=== PATIENT | male | born 1935 | race Caucasian/White ===

== ENCOUNTER 2022-03-31 11:00 | Day surgery (SDC) | payer OTHER ==
[2022-03-30 10:09] LABS: Absolute Lymphocytes (CBC) 1.2 K/uL (0.7-4.9); Hematocrit 49.5 % (39.6-49.0); Lymphocytes % 14.1 % (15.3-44.8); MCV 91.2 fL (80-100); MPV 7.4 fL (7.6-11.3); RBC Red Blood Cell Count 5.43 M/uL (4.33-5.43)
--- NOTE | 2022-03-30 10:12 | RAD REPORT ---
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 COMPARISON: CHEST PA AND LAT 2 VIEW dated 06/04/2008; CHEST PA AND LAT 2 VIEW dated 07/21/2006 FINDINGS: Mild pulmonary edema is seen. Small left pleural effusion. The heart is mildly prominent. No displaced fractures. Cervical spine hardware plate. IMPRESSION: Mild CHF.
[2022-03-30 10:15] LABS: Protime INR 0.93
[2022-03-30 10:21] LABS: SARS-CoV-2 Antigen Rapid Res Negative (Negative)
[2022-03-30 10:33] LABS: Potassium 3.5 mmol/L (3.5-5.1)
--- NOTE | 2022-03-30 18:28 | EKG ---
Test Date: 2022-03-30 Test Time: 09:52:02 Voice Studies Director: KEITH MEASUREMENT RESULTS: Intervals: Rate: 72 OH: 218 QRSD: 94 QT: 404 QTc: 442 [place]: P: [place]: 218 QRS: 171 T: 186 INTERPRETIVE STATEMENTS: Sinus rhythm with 1st degree AV block Left posterior fascicular block Inferior infarct, age undetermined Abnormal ECG Compared to ECG 09/16/2020 18:10:58 First degree AV block now present Left posterior fascicular block now present Myocardial infarct finding now present ST (T wave) deviation no longer present Possible ischemia no longer present Prolonged QT interval no longer present Electronically Signed On 03-30-22 18:27:56 CDT by Roderick Jarquin
[~2022-03-31 11:00] MED LIST: ATROPINE SULF 1 MG/10 ML SYR IV ONE; FENTANYL CITR 100 MCG/2 ML ONE; HEPA 1000U/500MLS 1,000 UNIT/500 ML BAG IV ONE; LIDOCAINE 1% MPF 30 ML VIAL ONE; MIDAZOLAM HCL 2 MG/2 ML INJ ONE
[2022-03-31] MEDS ORDERED: NA CHLORIDE 0.9% 500 ML ONE (11:18)
[2022-03-31] MEDS ORDERED: MIDAZOLAM HCL 2 MG/2 ML INJ ONE (12:55)
[2022-03-31 14:26] VITALS: O2SAT 92
[2022-03-31 15:01] VITALS: BP 147/67
--- NOTE | 2022-03-31 19:20 | OP ---
Date of Procedure: 03/31/2022 Surgeon: CATALINO CEDENO Procedures Performed: 1.Bilateral selective carotid angiogram. 2.Peripheral angiogram access of right femoral artery 6-Beninese closed with 6-Beninese Angio-Seal. Complications: None. Bleeding: Less than 50 mL. Indication: 1.Significant carotid stenosis by Doppler. 2.Significant peripheral vascular disease by Doppler with claudication. Anesthesia: Total sedation time was 45 minutes. Description Of Procedure: After risks, benefits, and alternatives were explained, patient agreed to the procedure and signed informed consent was obtained. Patient was brought into the cardiac cathete rization laboratory, prepped and draped in usual sterile fashion. Then, we accessed the right femora l artery using micropuncture kit, fluoroscopy, and ultrasound guidance, placed 6-Beninese [place] ruiz th and took 6-Beninese JR4 catheter into the aortic root, engaged the right and then the left common ca rotids and took standard views and then exchanged for a straight pigtail, did the distal aortogram wi th runoff and peripheral angiogram and then removed the catheter and the sheath and 6-Beninese Angio-Se al was used for closure with good hemostasis. Findings: 1.The carotid angiogram. a.The right common carotid artery has about 50% to 60% stenosis before the bifurcation. The right i nternal and external carotid artery appears normal. b.The left common carotid artery has midshaft 40% stenosis and then the left internal and external c arotid arteries appear normal. 2.Peripheral angiogram. a.Distal aorta is patent. b.Bilateral iliac arteries are with diffuse 40% to 50% stenosis and tandem lesions in multiple locat ions. c.Bilateral common femoral arteries are patent with luminal irregularities and bilateral profunda ar e patent. d.Bilateral SFA are patent with multiple tandem lesions of foot ranging between 40% to 50%. e.Below the knee, there is a 3-vessel runoff and they are all patent all the way to the toes with mi ld diffuse disease ranging anywhere between 10% to 30%, multiple locations, but brisk blood flow. Conclusion: 1.Moderate carotid artery stenosis bilaterally. 2.Moderate peripheral vascular disease bilaterally. Plan: Aggressive risk factor modification, medical management. SR/MODL Voice ID: [id number] Report ID: [id number]
== END 2022-03-31 15:10 | disposition home or self-care (01) ==
LOC: CCL 11:00
PROVIDERS: ATTEND Internal Medicine
DX: I65.23 Occlusion and stenosis of bilateral carotid arteries (principal); I70.213 Atherosclerosis of native arteries of extremities with intermittent claudication, bilateral legs; I10 Essential (primary) hypertension; E78.5 Hyperlipidemia, unspecified; Z87.891 Personal history of nicotine dependence; Z79.899 Other long term (current) drug therapy; Z88.0 Allergy status to penicillin; Z88.2 Allergy status to sulfonamides; Z20.822 Contact with and (suspected) exposure to COVID-19
CPT/HCPCS: 36222; 36415; 71046; 75630; 76937; 80048; 85025; 85610; 85730; 87811; 93005; C1760; C1893; G0269; J1644; J2250; J3010; J7040

== ENCOUNTER 2023-08-29 09:58 | Inpatient (IN) | payer OTHER ==
[2023-08-29 10:45] LABS: Absolute Lymphocytes (CBC) 0.9 K/uL (0.7-4.9); Hematocrit 40.7 % (39.6-49.0); Lymphocytes % 6.4 % (15.3-44.8); MCV 90.1 fL (80-100); MPV 8.5 fL (7.6-11.3); Platelets 235 thou/uL (152-406); RBC Red Blood Cell Count 4.51 M/uL (4.33-5.43)
[2023-08-29 10:49] LABS: Protime INR 1.08
--- NOTE | 2023-08-29 10:58 | RAD REPORT ---
[facility] am CLINICAL HISTORY: hypotension COMPARISON: Chest Single View dated 08/17/2023; Chest Pa And Lat (2 Views) dated 03/30/2022; CHEST PA AND LAT 2 VIEW dated 06/04/2008; CHEST PA AND LAT 2 VIEW dated 07/21/2006; Chest Abd Pelvis Wo Con howard ed 08/17/2023 TECHNIQUE: Portable AP view of the chest. FINDINGS: The lungs show bibasilar streaky opacities, may reflect atelectasis or improving airspace disease, particularly on the left. Improvement of aeration along the left costophrenic angle since th e prior exam. No pneumothorax or effusion. The cardiomediastinal contours are unremarkable. IMPRESSION: Improving bibasilar opacities as above. No other Acute cardiopulmonary process.
[2023-08-29 11:01] LABS: Albumin 2.6 g/dL (3.4-5.0); Bilirubin Total 0.7 mg/dL (0.2-1.0); Potassium 4.2 mEq/L (3.5-5.1); Protein, Total 6.7 g/dL (6.4-8.2); Troponin High Sensitivity 24.3 pg/mL (<58.9)
[2023-08-29 11:50] LABS: Urine Bacteria None Seen /HPF (<20); Urine Bilirubin NEGATIVE (Negative); Urine Clarity Turbid (Clear); Urine Color Light-Yellow (Yellow); Urine Glucose NEGATIVE (Negative); Urine Mucus Slight /HPF (None Seen); Urine Urobilinogen Normal (Normal)
[2023-08-29] MEDS ORDERED: CEFEPIME 2 GM VIAL ONE (12:19)
[2023-08-29] MEDS ORDERED: NA CHLORIDE 0.9% 100 ML ONE (12:20)
[2023-08-29] MEDS ORDERED: NA CHLORIDE 0.9% 1,000 ML ONE (12:20)
[2023-08-29] MEDS ORDERED: NA CHLORIDE 0.9% 500 ML ONE (12:20)
--- NOTE | 2023-08-29 13:04 | RAD REPORT ---
EXAM DESCRIPTION: CT - Abdomen Pelvis Wo Contrast - 08/29/2023 12:51 pm CLINICAL HISTORY: Abdominal pain. nephrostomy eval COMPARISON: No comparisons TECHNIQUE: CT imaging of the abdomen and pelvis was performed without contrast. Solid organ, bowel a nd vascular assessment is limited due to lack of IV and oral contrast. All CT scans are performed using dose optimization technique as appropriate and may include automated exposure control or mA/KV adjustment according to patient size. 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 The liver, spleen, pancreas, adrenal glands are within normal limits for a limited non-contrast exami nation.Punctate bilateral nephrolithiasis is left-sided PCN is in place. The pigtail is in the left r enal pelvis. No hydronephrosis. There is 8 mm stone noted proximal left ureter distal to the pigtail position. No bowel obstruction, free air, free fluid or abscess. Heavy aortoiliac atherosclerosis. Advanced sig moid diverticulosis without diverticulitis. The appendix is normal. Moderate stool retained throughou t the colon. Lumbosacral degenerative changes. IMPRESSION: Left-sided percutaneous nephrostomy tube is in expected location. There is no maternal h ydronephrosis. There is 8 mm stone in the proximal left ureter distal to the pigtail. Punctate bilate ral nephrolithiasis present as well. Multi stone cholelithiasis. A limited non-contrast examination was performed as detailed.
--- NOTE | 2023-08-29 13:19 | ER ---
Nurse's Notes [facility] Name: Víctor Javier Age: 88 yrs Sex: Male : 1935 Arrival Date: 08/29/2023 Time: 09:58 Bed 14 Private MD: Diagnosis: Hypotension;Acute kidney injury Presentation: 08/29 10:05 Chief complaint: EMS states: pt was at the [facility] for a routine check up when they were kc6 getting sbp's in the 70's. BGL en route 83. per Dr. Moise admin the rest of the 1L fluid bolus from EMS. Coronavirus screen: At this time, the client does not indicate any symptoms associated with coronavirus-19. Ebola Screen: No symptoms or risks identified at this time. Initial Sepsis Screen: Does the patient meet any 2 criteria? Systolic BP < 90 mmHg. Mean Arterial Pressure (MAP) < 65. Does the patient have a suspected source of infection? No. Patient's initial sepsis screen is negative. Risk Assessment: Do you want to hurt yourself or someone else? Patient reports no desire to harm self or others. Onset of symptoms was August 29, 2023. 10:05 Method Of Arrival: EMS: [facility] kc6 10:05 Acuity: ELTON 2 kc6 Triage Assessment: 10:07 General: Appears in no apparent distress. comfortable, well groomed, well developed, kc6 Behavior is calm, cooperative, appropriate for age. Pain: Denies pain. EENT: No signs and/or symptoms were reported regarding the EENT system. Neuro: Level of Consciousness is awake, alert, obeys commands, Oriented to person, place, time, situation, Appropriate for age Reports dizziness. Cardiovascular: Denies chest pain, Heart tones S1 S2 present Capillary refill < 3 seconds Rhythm is sinus rhythm. Respiratory: Reports shortness of breath on exertion Airway is patent Trachea midline Respiratory effort is even, unlabored, Respiratory pattern is regular, symmetrical. GI: No signs and/or symptoms were reported involving the gastrointestinal system. : left nephrostomy tube. Derm: No signs and/or symptoms reported regarding the dermatologic system. Skin is intact, is healthy with good turgor, Skin is pink, warm \T\ dry. Musculoskeletal: No signs and/or symptoms reported regarding the musculoskeletal system. Circulation, motion, and sensation intact. Capillary refill < 3 seconds, Range of motion: intact in all extremities. Historical: - Allergies: 10:07 PENICILLINS; kc6 10:07 Sulfa (Sulfonamide Antibiotics); kc6 - PMHx: 10:07 Chronic obstructive lung disease; Hypertensive disorder; Diabetes mellitus; Kidney kc6 stone; - PSHx: 10:07 left nephrostomy tube; kc6 - Immunization history:: Adult Immunizations up to date. - Social history:: Smoking status: Patient/guardian denies using tobacco. Screenin:09 [facility] ED Fall Risk Assessment (Adult) History of falling in the last 3 months, kc6 including since admission No falls in past 3 months (0 pts) Confusion or Disorientation No (0 pts) Intoxicated or Sedated No (0 pts) Impaired Gait No (0 pts) Mobility Assist Device Used No (0 pt) Altered Elimination Yes (1 pt) Score/Fall Risk Level 0 - 2 = Low Risk. Abuse screen: Denies threats or abuse. Denies injuries from another. Nutritional screening: No deficits noted. Tuberculosis screening: No symptoms or risk factors identified. Assessment: 10:09 Reassessment: please see triage assessment. kc6 10:54 Reassessment: Patient appears in no apparent distress at this time. No changes from kc6 previously documented assessment. Patient and/or family updated on plan of care and expected duration. Pain level reassessed. Patient is alert, oriented x 3, equal unlabored respirations, skin warm/dry/pink. 11:56 Reassessment: Patient appears in no apparent distress at this time. No changes from kc6 previously documented assessment. Patient and/or family updated on plan of care and expected duration. Pain level reassessed. Patient is alert, oriented x 3, equal unlabored respirations, skin warm/dry/pink. 12:46 Reassessment: Patient appears in no apparent distress at this time. No changes from kc6 previously documented assessment. Patient and/or family updated on plan of care and expected duration. Pain level reassessed. Patient is alert, oriented x 3, equal unlabored respirations, skin warm/dry/pink. 14:20 Reassessment: Patient appears in no apparent distress at this time. No changes from kc6 previously documented assessment. Patient and/or family updated on plan of care and expected duration. Pain level reassessed. Patient is alert, oriented x 3, equal unlabored respirations, skin warm/dry/pink. Vital Signs: 10:05 BP 64 / 43; Pulse 85; Resp 17 S; Pulse Ox 98% on 3 lpm NC; Weight 79.38 kg (R); Height kc6 5 ft. 9 in. (R); 10:12 BP 113 / 47; kc6 10:54 BP 101 / 65; Pulse 81; Resp 19 S; Pulse Ox 94% on 3 lpm NC; kc6 11:56 BP 96 / 48; Pulse 88; Resp 19 S; Pulse Ox 95% on 3 lpm NC; kc6 12:47 BP 100 / 60; Pulse 85; Resp 16 S; Pulse Ox 95% on 3 lpm NC; kc6 14:21 BP 100 / 48; Pulse 92; Resp 17 S; Pulse Ox 93% on 3 lpm NC; kc6 10:05 Body Mass Index 25.84 (79.38 kg, 175.26 cm) kc6 ED Course: 10:03 Patient arrived in ED. kb3 10:05 Mary Escamilla RN is Primary Nurse. kc6 10:07 Triage completed. kc6 10:07 Arm band placed on. kc6 10:08 Ben Moise MD is Attending Physician. rt 10:09 Patient has correct armband on for positive identification. Placed in gown. Bed in low kc6 position. Call light in reach. Side rails up X2. Client placed on continuous cardiac and pulse oximetry monitoring. NIBP monitoring applied. raw scales operator on. 10:09 Maintain EMS IV. Dressing intact. Good blood return noted. Site clean \T\ dry. Gauge \T\ jessa 6 site: 20G LAC. Oxygen administration via nasal cannula \T\ 3L/min. 10:13 Missed attempt(s): 18 gauge in right wrist. Bleeding controlled, band aid applied, em1 catheter tip intact. 10:32 Inserted saline lock: 20 gauge in right antecubital area, using aseptic technique. kc6 Blood collected. 10:54 Chest Single View XRAY In Process Unspecified. EDMS 11:04 UAM: from nephrostomy Sent. kc6 11:04 Straight cath inserted, using sterile technique, 16 Fr. Specimen obtained. Returned kc6 clear yellow urine. Patient tolerated well. 12:53 CT Abd/Pelvis - Without Contrast In Process Unspecified. EDMS 13:17 Renaldo Bower MD is Hospitalizing Provider. rt 14:29 No provider procedures requiring assistance completed. Patient admitted, IV remains in kc6 place. Administered Medications: 12:29 Drug: NS 0.9% IV 1400 ml IV at 1 bolus Per protocol; 1000 mL bolus Route: IV; Rate: 1 kc6 bolus; Site: left antecubital; 14:21 Follow up: Response: No adverse reaction; IV Status: Completed infusion; IV Intake: kc6 1400ml 12:29 Drug: Cefepime IVPB 2 grams IVPB at 200 ml/hr once over 30 mins; (mix in NS 100 mL) kc6 Route: IVPB; Rate: 200 ml/hr; Infused Over: 30 mins; Site: right antecubital; Medication: 14:30 VIS not applicable for this client. kc6 Intake: 14:21 IV: 1400ml; Total: 1400ml. kc6 Outcome: 13:18 Decision to Hospitalize by Provider. rt 14:30 Admitted to ER Hold. Please see [facility] for further documentation. kc6 14:30 Condition: stable 14:30 Instructed on the need for admit, 16:25 Patient left the ED. kc6 Signatures: Dispatcher [employer] EDMS Timoteo Garcia em1 Mary Escamilla RN RN kc6 Denice Guerrero, KHADAR RN kb3 Ben Moise MD MD rt Corrections: (The following items were deleted from the chart) 11:12 11:04 Urinalysis+U.LAB.BRZ drawn and sent. kc6 EDMS 15:12 10:05 Chief complaint: EMS states: [facility] when they kc6 were getting sbp's in the 70's. BGL en route 83 kc6
--- NOTE | 2023-08-29 13:19 | EDPHYS ---
Physician Documentation [facility] Name: Víctor Javier Age: 88 yrs Sex: Male : 1935 Arrival Date: 08/29/2023 Time: 09:58 Bed 14 Private MD: ED Physician Ben Moise HPI: 08/29 10:51 This 88 yrs old Male presents to ER via EMS with complaints of Blood Pressure Problem. rt 10:51 Patient presents to the ED with hypotension from the [facility]. The patient reports rt feeling weak, dizzy, short of breath but he states this is typical for him and unchanged. His blood pressure was reportedly in the 60s systolic at the [facility]. Denies any other complaints at this time, symptoms are moderate in severity, no other aggravating or elevating factors.. Historical: - Allergies: 10:07 PENICILLINS; kc6 10:07 Sulfa (Sulfonamide Antibiotics); kc6 - PMHx: 10:07 Chronic obstructive lung disease; Hypertensive disorder; Diabetes mellitus; Kidney kc6 stone; - PSHx: 10:07 left nephrostomy tube; kc6 - Immunization history:: Adult Immunizations up to date. - Social history:: Smoking status: Patient/guardian denies using tobacco. ROS: 10:51 Constitutional: Negative for fever, chills, and weight loss, Cardiovascular: Negative rt for chest pain, palpitations, and edema, Abdomen/GI: Negative for abdominal pain, nausea, vomiting, diarrhea, and constipation, MS/Extremity: Negative for injury and deformity, Skin: Negative for injury, rash, and discoloration, Psych: Negative for depression, anxiety, suicide ideation, homicidal ideation, and hallucinations, 10:51 Respiratory: Positive for cough, Negative for cough, 10:51 Neuro: Positive for dizziness, weakness, Exam: 10:51 Constitutional: This is a well developed, well nourished patient who is awake, alert, rt and in no acute distress. Head/Face: Normocephalic, atraumatic. Neck: Trachea midline, no thyromegaly or masses palpated, and no cervical lymphadenopathy. Supple, full range of motion without nuchal rigidity, or vertebral point tenderness. No Meningismus. Chest/axilla: Normal chest wall appearance and motion. Nontender with no deformity. No lesions are appreciated. Cardiovascular: Regular rate and rhythm with a normal S1 and S2. No gallops, murmurs, or rubs. Normal PMI, no JVD. No pulse deficits. Respiratory: Lungs have equal breath sounds bilaterally, clear to auscultation and percussion. No rales, rhonchi or wheezes noted. No increased work of breathing, no retractions or nasal flaring. Abdomen/GI: Soft, non-tender, with normal bowel sounds. No distension or tympany. No guarding or rebound. No evidence of tenderness throughout. Skin: Warm, dry with normal turgor. Normal color with no rashes, no lesions, and no evidence of cellulitis. MS/ Extremity: Pulses equal, no cyanosis. Neurovascular intact. Full, normal range of motion. Neuro: Awake and alert, GCS 15, oriented to person, place, time, and situation. Cranial nerves II-XII grossly intact. Motor strength 5/5 in all extremities. Sensory grossly intact. Cerebellar exam normal. Normal gait. Psych: Awake, alert, with orientation to person, place and time. Behavior, mood, and affect are within normal limits. 10:51 ECG was reviewed by the Attending Physician. 10:51 Back: Left-sided nephrostomy tube in place, draining, no erythema surrounding it., Vital Signs: 10:05 BP 64 / 43; Pulse 85; Resp 17 S; Pulse Ox 98% on 3 lpm NC; Weight 79.38 kg (R); Height kc6 5 ft. 9 in. (R); 10:12 BP 113 / 47; kc6 10:54 BP 101 / 65; Pulse 81; Resp 19 S; Pulse Ox 94% on 3 lpm NC; kc6 11:56 BP 96 / 48; Pulse 88; Resp 19 S; Pulse Ox 95% on 3 lpm NC; kc6 12:47 BP 100 / 60; Pulse 85; Resp 16 S; Pulse Ox 95% on 3 lpm NC; kc6 14:21 BP 100 / 48; Pulse 92; Resp 17 S; Pulse Ox 93% on 3 lpm NC; kc6 10:05 Body Mass Index 25.84 (79.38 kg, 175.26 cm) kc6 MDM: 10:08 Patient medically screened. rt 16:32 Differential Diagnosis Hypertension, intravascular bomb depletion, anemia. Data rt reviewed: vital signs, nurses notes, lab test result(s), EKG, radiologic studies. Consideration of Admission/Observation Patient was admitted/placed on observation. Management of patient was discussed with the following: Hospitalist: Agrees to admit. I considered the following discharge prescriptions or medication management in the emergency department Medications were administered in the Emergency Department. See MAR Patient without clear source of infection, empiric antibiotics were given. Care significantly affected by the following chronic conditions: Chronic Obstructive Pulmonary Disease. Counseling: I had a detailed discussion with the patient and/or guardian regarding the historical points, exam findings, and any diagnostic results supporting the discharge/admit diagnosis, lab results, radiology results, the need for further work-up and treatment in the hospital. 08/29 10:19 Order name: Blood Culture Adult (2) rt 08/29 10:19 Order name: CBC with Diff; Complete Time: 11:05 rt 08/29 10:19 Order name: CMP; Complete Time: 11: rt 08/29 10:19 Order name: Lactate w/ 2H reflex if indic.; Complete Time: 11: rt 08/29 10:19 Order name: Protime (+inr); Complete Time: 11:05 rt 08/29 10:19 Order name: Ptt, Activated; Complete Time: 11:05 rt 08/29 10:19 Order name: UAM: from nephrostomy; Complete Time: 14:20 rt 08/29 10:19 Order name: Troponin High Sensitivity; Complete Time: 11:05 rt 08/29 13:09 Order name: UAM: Obtain urine from urethra/bladder; Complete Time: 14:20 la1 08/29 10:19 Order name: Chest Single View XRAY; Complete Time: 11:05 rt 08/29 12:25 Order name: CT Abd/Pelvis - Without Contrast; Complete Time: 13:09 rt 08/29 10:19 Order name: EKG; Complete Time: 10:19 rt 08/29 13:30 Order name: CONS Physician Consult EDMS 08/29 10:19 Order name: Accucheck; Complete Time: 10:32 rt 08/29 10:19 Order name: Cardiac monitoring; Complete Time: 10:32 rt 08/29 10:19 Order name: EKG - Nurse/Tech; Complete Time: 10:32 rt 08/29 10:19 Order name: IV Saline Lock - Large Bore; Complete Time: 10:32 rt 08/29 10:19 Order name: Labs collected and sent; Complete Time: rt 08/29 10:19 Order name: O2 Per Protocol; Complete Time: rt 08/29 10:19 Order name: O2 Sat Monitoring; Complete Time: rt 08/29 10:19 Order name: Vital Signs; Complete Time: 10:32 rt EC:51 Rate is 76 beats/min. Rhythm is regular, Normal Sinus Rhythm with No ectopy. QRS Sutton rt is Normal. NE interval is normal. QRS interval is normal. QT interval is normal. No Q waves. T waves are Normal. No ST changes noted. Administered Medications: 12:29 Drug: NS 0.9% IV 1400 ml IV at 1 bolus Per protocol; 1000 mL bolus Route: IV; Rate: 1 kc6 bolus; Site: left antecubital; 14:21 Follow up: Response: No adverse reaction; IV Status: Completed infusion; IV Intake: kc6 1400ml 12:29 Drug: Cefepime IVPB 2 grams IVPB at 200 ml/hr once over 30 mins; (mix in NS 100 mL) kc6 Route: IVPB; Rate: 200 ml/hr; Infused Over: 30 mins; Site: right antecubital; Disposition Summary: 08/29/23 13:18 Hospitalization Ordered Notes: Hospitalization Status: Inpatient Admission rt Provider: Renaldo Bower [facility] rt Condition: Fair rt Problem: new rt Symptoms: have improved rt Bed/Room Type: Standard rt Room Assignment: 219(08/29/23 15:25) bd Diagnosis - Hypotension rt - Acute kidney injury rt Forms: - Medication Reconciliation Form rt - SBAR form rt - Leadership Thank You Letter rt Critical care time excluding procedures: 16:32 Critical care time: Bedside Care: 30 minutes, Consultation: 10 minutes. Total time: 40 rt minutes Signatures: Dispatcher [employer] Mckenzie Demarco Kaitlyn, RN RN kc6 Ben Moise MD MD rt Corrections: (The following items were deleted from the chart) 11:12 10:19 Urinalysis+U.LAB.BRZ ordered. ZAK CRESPO 15:25 13:18 rt bd
[2023-08-29 14:03] LABS: Specific Gravity 1.017 (1.005-1.030); Urine Bacteria None Seen /HPF (<20); Urine Bilirubin NEGATIVE (Negative); Urine Blood Negative (Negative); Urine Clarity Turbid (Clear); Urine Color Light-Yellow (Yellow); Urine Glucose NEGATIVE (Negative); Urine Mucus Slight /HPF (None Seen); Urine Protein TRACE (Negative); Urine RBC <5 /HPF (None Seen); Urine Urobilinogen Normal (Normal)
[2023-08-29 14:07] LABS: Specific Gravity 1.016 (1.005-1.030); Urine Blood 3+ (Negative)
[2023-08-29 14:08] LABS: Urine Protein 2+ (Negative); Urine pH 5.5 (5.0-7.0)
[2023-08-29 14:09] LABS: Urine RBC >50 /HPF (None Seen)
[2023-08-29] MEDS: NA CHLORIDE 0.9% 1,000 ML IV SCH (14:25)
--- NOTE | 2023-08-29 15:17 | P.HP ---
Certification for Inpatient Patient admitted to: Inpatient With expected LOS: >2 Midnights Patient will require the following post-hospital care: None Practitioner: I am a practitioner with admitting privileges, knowledge of patient current condition, hospital course, and medical plan of care. Services: Services provided to patient in accordance with Admission requirements found in Title 42 Section 412.3 of the Code of Federal Regulations Patient History Date of Service: 08/29/23 Reason for admission: VINICIUS, hypotension History of Present Illness: 88-year-old male with hypertension, hypothyroidism, hyperlipidemia, gout presents to the emergency department chief complaint of low blood pressure. He was recently admitted to our hospital for acute hypoxic respiratory failure 2/2 COVID pneumonia/copd , acute kidney injury and found to have obstructive uropathy. He was transferred to [facility] for further evaluation/percutaneous nephrostomy tube placement given his marked hydronephrosis. He was discharged from [facility] on 08/23/2023 with a creatinine around 1.5. He was discharged to rehab facility for approximately 3 days and subsequently went home 3 days prior to presentation to the emergency department. He was evaluated here in the emergency department and his labs were significant for a white blood cell count of 14.1 creatinine 5.03 BUN 155 GFR 10 bicarb 20 sodium 132 lactic acid 1.4 UA was obtained from nephrostomy tube which was concerning for presence of UTI Additional urine was obtained with straight cath from urethra which did not seem to demonstrate infection Upon presentation to the emergency department patient was hypotensive with a blood pressure of 64/43, he was given IV fluids in the emergency department and his blood pressure has improved, he was also given empiric antibioticscefepime. There is also likely component of dehydration/poor oral intake contributing to his hypovolemia, hypotension. Patient be admitted to hospital for further evaluation Allergies Penicillins Allergy (Verified 03/30/22 09:20) Hives/Rash Sulfa (Sulfonamide Antibiotics) Allergy (Verified 03/30/22 09:20) swelling Home Medications: Amlodipine Besylate [Norvasc] 10 mg PO DAILY WITH BREAKFAST 08/19/16 Levothyroxine Sodium 100 mcg PO DAILY 08/19/16 allopurinoL [Zyloprim*] 300 mg PO DAILY 08/19/16 lisinopriL [Prinivil*] 40 mg PO DAILY WITH BREAKFAST 08/19/16 Atorvastatin Calcium [Lipitor] 40 mg PO DAILY 08/17/23 hydroCHLOROthiazide [Hydrochlorothiazide*] 12.5 mg PO DAILY 08/17/23 - Past Medical/Surgical History Diabetic: No -: Hypertension -: Hyperlipidemia -: gout -: Hypothyroidism -: C-spine surgery Psychosocial/ Personal History: Lives at home alone - Social History Smoking Status: Former smoker Alcohol use: No CD- Drugs: No Caffeine use: Yes Place of Residence: Home Review of Systems 10-point ROS is otherwise unremarkable General: Weakness Physical Examination - Physical Exam General: Alert, In no apparent distress, Oriented x3 HEENT: Atraumatic, PERRLA, Other (MM dry) Neck: Supple, 2+ carotid pulse no bruit, No LAD Respiratory: Clear to auscultation bilaterally, Normal air movement Cardiovascular: Regular rate/rhythm, Normal S1 S2 Gastrointestinal: Normal bowel sounds, No tenderness Musculoskeletal: No tenderness, Other Integumentary: No rashes Neurological: Normal gait, Normal speech, Normal strength at 5/5 x4 extr, Normal tone, Normal affect Lymphatics: No axilla or inguinal lymphadenopathy Urinary: Other (left nephrostomy in place) External genitalia: Other - Studies Laboratory Data (last 24 hrs) 08/29/23 08/29/23 08/29/23 10:26 10:26 10:26 WBC 14.10 H Hgb 13.7 Hct 40.7 Plt Count 235 PT 11.9 INR 1.08 APTT 25.9 Sodium 132 L Potassium 4.2 BUN 155 H Creatinine 5.03 H Glucose 134 H Total Bilirubin 0.7 AST 13 L ALT 32 Alkaline Phosphatase 100 Assessment and Plan - Plan Assessment: Acute kidney injury-likely multifactorial Severe sepsis secondary to UTI 8 mm proximal left ureteral stone S/P left percutaneous nephrostomy tube placement-no resulting hydronephrosis Hypertension-currently with hypotension Hypothyroidism Gout Plan: Acute kidney injury-likely multifactorial CT abdomen pelvis performed with no significant hydronephrosis/obstructive uropathy noted Patient does admit very poor oral intake VINICIUS likely secondary to dehydration, poor oral intake, low blood pressures Sepsis/UTI also likely contributing Severe sepsis secondary to UTI SIRS criteria present including leukocytosis, tachycardia Source of infection on urinalysis from nephrostomy tube with UTI Given total of 30 cc/kg IV fluid bolus in ED with improvement blood pressure Only 1 systolic blood pressure less than 90 systolic, improved with IV fluids Believe hypotension likely multifactorial with poor oral intake 8 mm proximal left ureteral stone S/P left percutaneous nephrostomy tube placement-no resulting hydronephrosis Nephrostomy tube in place, draining well CT without hydro Hypertension-currently with hypotension Hold blood pressure medications while hypotensive Hypothyroidism Gout Continue home medications DVT PPX: Heparin subcu Code status: Full Discharge Plan: Home Plan to discharge in: Greater than 2 days - Advance Directives Does patient have a Living Will: No Does patient have a Durable POA for Healthcare: No - Code Status/Comfort Care Code Status Assessed: Yes (DNR) Critical Care: No Time Spent Managing Pts Care (In Minutes): 70
[2023-08-29 17:10] VITALS: BMI 25.8
[2023-08-29] MEDS: HEPARIN 5000 UNIT/ML 1 ML VIAL SQ SCH (19:51)
[2023-08-29] MEDS: ACETAMINOPHEN 500 MG TAB PO PRN (19:51)
[2023-08-30] MEDS: NA CHLORIDE 0.9% 1,000 ML IV SCH ×2 (00:25→11:21)
[2023-08-30 07:21] LABS: Absolute Lymphocytes (CBC) 0.7 K/uL (0.7-4.9); Hematocrit 39.1 % (39.6-49.0); Lymphocytes % 6.7 % (15.3-44.8); MPV 8.4 fL (7.6-11.3); Platelets 192 thou/uL (152-406); RBC Red Blood Cell Count 4.35 M/uL (4.33-5.43)
[2023-08-30 07:39] LABS: Albumin 2.2 g/dL (3.4-5.0); Bilirubin Total 0.6 mg/dL (0.2-1.0); Magnesium 2.2 mg/dL (1.6-2.4); Potassium 4.2 mEq/L (3.5-5.1)
[2023-08-30] MEDS ORDERED: PNEUMOCOCCAL VACCINE 0.5 ML IMVAC ONE (08:00)
[2023-08-30 08:48] LABS: Blood Morphology Comment NOT SEEN (NOT SEEN); Platelet Estimate ADEQ
[2023-08-30] MEDS: CEFEPIME 1 GM in NA CHLORIDE 0.9% 100 ML IV SCH (09:04)
[2023-08-30] MEDS: HEPARIN 5000 UNIT/ML 1 ML VIAL SQ SCH ×2 (09:05→20:44)
--- NOTE | 2023-08-30 09:51 | P.CNS ---
Date of Consult: 08/30/23 Reason for Consult: uti/yeast; nephrostomy tube Requesting Physician: Renaldo Bower Chief Complaint: VINICIUS, hypotension History of Present Illness: Patient is an 88 year old male with a PMG of hypertension, hypothyroidism, hyperlipidemia, gout and recent nephrostomy tube placement who presented to the ED due to generalized weakness and hypotension. Of note, he was recently hospitalized for acute hypoxic respiratory failure secondary to covid pneumonia and was also found to have obstructive uropathy. At the time, he was transferred to [facility] where a left nephrostomy tube was placed and was subsequently discharged on 08/23/2023. Allergies Penicillins Allergy (Verified 03/30/22 09:20) Hives/Rash Sulfa (Sulfonamide Antibiotics) Allergy (Verified 03/30/22 09:20) swelling Home medications list reviewed: Yes Home Medications: Amlodipine Besylate [Norvasc] 10 mg PO DAILY WITH BREAKFAST 08/19/16 Levothyroxine Sodium 100 mcg PO DAILY 08/19/16 allopurinoL [Zyloprim*] 300 mg PO DAILY 08/19/16 lisinopriL [Prinivil*] 40 mg PO DAILY WITH BREAKFAST 08/19/16 Atorvastatin Calcium [Lipitor] 40 mg PO DAILY 08/17/23 hydroCHLOROthiazide [Hydrochlorothiazide*] 12.5 mg PO DAILY 08/17/23 - Past Medical/Surgical History Diabetic: No -: Hypertension -: Hyperlipidemia -: gout -: Hypothyroidism -: C-spine surgery Psychosocial/ Personal History: Lives at home alone - Social History Alcohol use: No CD- Drugs: No Caffeine use: Yes Place of Residence: Home Review of Systems 10-point ROS is otherwise unremarkable General: Weakness Respiratory: Shortness of Breath Musculoskeletal: Back Pain Physical Examination Temp Pulse Resp BP Pulse Ox 97.9 F 88 19 94/53 L 91 08/30/23 08:00 08/30/23 08:00 08/30/23 08:00 08/30/23 08:00 08/30/23 08:00 General: Alert, In no apparent distress, Oriented x3 HEENT: Atraumatic, Normocephalic Respiratory: Normal air movement, Diminished, Other (on room air) Cardiovascular: No edema, Regular rate/rhythm Gastrointestinal: Normal bowel sounds, Non-distended, No tenderness Integumentary: No rashes Neurological: Normal speech, Normal tone, Normal affect Urinary: Other (left nephrostomy tube) Laboratory Data - Reviewed Microbiology Data - Reviewed Imagings Data: - Reviewed Conclusions/Impression: Problem List Severe sepsis secondary to complicated urinary tract infection Acute Kidney Injury Hypothyroidism Gout Hyperlipidemia Sepsis secondary to Complicated Urinary Tract Infection - CT abdomen pelvis 08/29: "Left-sided percutaneous nephrostomy tube is in expected location. There is no maternal hydronephrosis. There is 8 mm stone in the proximal left ureter distal to the pigtail. Punctate bilateral nephrolithiasis present as well. Multi stone cholelithiasis." - Blood cultures 08/29: pending - Urine culture 08/29 pending - Currently on Cefepime (started 08/30) Leukocytosis resolved (WBC 14.1 -> 10.1) Afebrile Recommendations - Continue cefepime for now. - Follow up with urine and blood culture results. Will adjust antibiotics as appropriate. - maintain adequate hydration - nutritional supplementation - monitor CBC and BMP - Renally dose medications - continue supportive care Case discussed with Kourtney Pierre
[2023-08-30] MEDS ORDERED: Ringers Lactate 1,000 ML IV SCH (12:00)
--- NOTE | 2023-08-30 12:02 | P.CNS ---
Date of Consult: 08/30/23 Reason for Consult: ARF, urosepsis, Lt PCN Requesting Physician: Ottoniel Shepherd Chief Complaint: VINICIUS, hypotension History of Present Illness: Pt is a 88-year-old male with hx of essential hypertension with home meds including ACEi and thiazide diuretic, a hx of hypothyroidism, hyperlipidemia, gout who presented to the emergency department with low blood pressure. He was recently admitted to our hospital earlier this mo for for reported acute hypoxic respiratory failure 2/2 COVID pneumonia/copd , acute kidney injury wiht Lt obstructive uropathy and was transferred to [facility] for further evaluation/percutaneous nephrostomy tube placement given his marked Lt hydronephrosis. He was discharged from [facility] on 08/23/2023 with a creatinine around 1.5. He was discharged to rehab facility for approximately 3 days and subsequently went home 3 days prior to presentation to the emergency department. On admission pt was found to have ARF, significant azotemia, leukocytosis and concern for urosepsis. Fortunately, with IVF he is quickly improving, he did not require pressor support. He denies N/V/abd or flank pain . Lt PCN draining. No gross hematuria. Allergies Penicillins Allergy (Verified 03/30/22 09:20) Hives/Rash Sulfa (Sulfonamide Antibiotics) Allergy (Verified 03/30/22 09:20) swelling Home Medications: Amlodipine Besylate [Norvasc] 10 mg PO DAILY WITH BREAKFAST 08/19/16 Levothyroxine Sodium 100 mcg PO DAILY 08/19/16 allopurinoL [Zyloprim*] 300 mg PO DAILY 08/19/16 lisinopriL [Prinivil*] 40 mg PO DAILY WITH BREAKFAST 08/19/16 Atorvastatin Calcium [Lipitor] 40 mg PO DAILY 08/17/23 hydroCHLOROthiazide [Hydrochlorothiazide*] 12.5 mg PO DAILY 08/17/23 - Past Medical/Surgical History Diabetic: No -: Hypertension -: Hyperlipidemia -: gout -: Hypothyroidism -: C-spine surgery Psychosocial/ Personal History: Lives at home alone - Social History Alcohol use: No CD- Drugs: No Caffeine use: Yes Place of Residence: Home Review of Systems General: Weakness, As per HPI Eyes: Unremarkable ENT: Unremarkable Respiratory: Unremarkable Cardiovascular: Unremarkable Gastrointestinal: Unremarkable Genitourinary: As per HPI Musculoskeletal: Unremarkable Integumentary: Unremarkable Neurological: Unremarkable Physical Examination Temp Pulse Resp BP Pulse Ox 97.9 F 88 19 94/53 L 91 08/30/23 08:00 08/30/23 08:00 08/30/23 08:00 08/30/23 08:00 08/30/23 08:00 General: Alert, Cooperative, Cachectic HEENT: Atraumatic, Normocephalic, Other (LFNC) Neck: Supple Respiratory: Normal air movement, Other (No rhonchi anteriorly) Cardiovascular: No edema, Regular rate/rhythm Gastrointestinal: Soft and benign, Non-distended, No tenderness, Other (Lt PCN) Musculoskeletal: No contractures, No tenderness Integumentary: No rashes Neurological: Normal speech, Normal tone Conclusions/Impression: A/P) 1. Stage III sub-acute, recurrent renal failure in the setting of pre-renal az otemia, hypotension, suspected urosepsis and concurrent ACEi/thiazide diuretic use. 2. Fortunately, Cr level did significantly downward trend with initial vol resuscitation, cont IVF hydration. Cont to hold offending meds 3. Hypotension 2nd to hypovolemia, meds, urosepsis. F/u UCx, cont IVF, Abx. Bolus IVF if needed. 4. Azotemia without any overt uremia -trend closely, no emergent indication for CORRUGATED SHEET MATERIAL SHEETER 5. Hypovolemic, non hypotonic hyponatremia -resolved on isotonic IVF 6. Switched to balanced solution like LR for maintenance IVF 7. Hx of recent Lt hydro 2nd to prox ureteral calculus s/p Lt PCN, calculus of ureter still noted but no current left hydro. Abnormal findings in urine, cont Abx for suspected urosepsis. Review recent urine cultures to guide Abx. Dose for reduced CrCl Ajith Hemphill MD, FASN
[2023-08-30] MEDS: Ringers Lactate 1,000 ML IV SCH (12:28)
--- NOTE | 2023-08-30 14:19 | P.PN ---
Date of Service: 08/30/23 Subjective: Improving No acute events overnight PCN draining freely ROS: 10 point ROS as noted above, otherwise negative Physical exam GEN: Alert, oriented, NAD HEENT: Normal conjunctiva, sclera anicteric CV: Regular rate and rhythm, no edema Pulm: Nonlabored respirations on room air ABD: Soft, nontender, nondistended, left PCN in place MSK: No joint tenderness Integumentary: No rashes Neuro: Normal speech, normal affect Vitals reviewed Assessment: Acute kidney injury-likely multifactorial Severe sepsis secondary to UTI 8 mm proximal left ureteral stone S/P left percutaneous nephrostomy tube placement-no resulting hydronephrosis Hypertension-currently with hypotension Hypothyroidism Gout Plan: Acute kidney injury-likely multifactorial CT abdomen pelvis performed with no significant hydronephrosis/obstructive uropathy noted Patient does admit very poor oral intake VINICIUS likely secondary to dehydration, poor oral intake, low blood pressures Sepsis/UTI also likely contributing Improving with IV fluid continue to monitor function closely Nephrology following Also considering postobstructive polyuria Severe sepsis secondary to UTI SIRS criteria present including leukocytosis, tachycardia Source of infection on urinalysis from nephrostomy tube with UTI Given total of 30 cc/kg IV fluid bolus in ED with improvement blood pressure Only 1 systolic blood pressure less than 90 systolic, improved with IV fluids Believe hypotension likely multifactorial with poor oral intake 8 mm proximal left ureteral stone S/P left percutaneous nephrostomy tube placement-no resulting hydronephrosis Nephrostomy tube in place, draining well CT without hydro Hypertension-currently with hypotension Hold blood pressure medications while hypotensive Hypothyroidism Gout Continue home medications DVT PPX: Heparin subcu Code status: Full Discharge Plan: Home Plan to discharge in: Greater than 2 days Time Spent Managing Pts Care (In Minutes): 35 <Ottoniel Shepherd - Last Filed: 08/30/23 14:17> Patient seen and examined on rounds this morning with PLANT HR MANAGER Cora. Agree with plan of care as noted above with following additions/corrections: improving. no fever suspect post-obstructive diuresis playing a role. continue empiric antibiotics and f/u culture. ID and nephro following decrease IVF <Renaldo Bower - Last Filed: 08/30/23 17:18>
[2023-08-30] MEDS: ACETAMINOPHEN 500 MG TAB PO PRN (20:43)
[2023-08-31] MEDS: Ringers Lactate 1,000 ML IV SCH (01:28)
[2023-08-31 06:42] LABS: Hematocrit 38.7 % (39.6-49.0); Lymphocytes % 12.2 % (15.3-44.8); MCV 90.1 fL (80-100); MPV 8.4 fL (7.6-11.3); Platelets 176 thou/uL (152-406); RBC Red Blood Cell Count 4.29 M/uL (4.33-5.43)
[2023-08-31 07:01] LABS: Albumin 2.2 g/dL (3.4-5.0); Bilirubin Total 0.6 mg/dL (0.2-1.0); Magnesium 1.8 mg/dL (1.6-2.4); Potassium 4.1 mEq/L (3.5-5.1); Protein, Total 6.1 g/dL (6.4-8.2)
[2023-08-31] MEDS ORDERED: Ringers Lactate 1,000 ML IV SCH (07:06)
[2023-08-31] MEDS: CEFEPIME 1 GM in NA CHLORIDE 0.9% 100 ML IV SCH (09:23)
[2023-08-31] MEDS: HEPARIN 5000 UNIT/ML 1 ML VIAL SQ SCH ×2 (09:23→20:16)
--- NOTE | 2023-08-31 09:50 | P.PN ---
Date of Service: 08/31/23 Chief Complaint: VINICIUS, hypotension Subjective: Improving. No acute events overnight. In no apparent distress. Denies any new or worsening complaints at this time. Physical Examination Temp Pulse Resp BP Pulse Ox 97.9 F 81 18 129/62 92 08/31/23 08:00 08/31/23 08:00 08/31/23 08:00 08/31/23 08:00 08/31/23 08:00 General: Alert, In no apparent distress, Oriented x3 HEENT: Atraumatic, Normocephalic Respiratory: Normal air movement, Diminished. On 2L nasal cannula. Cardiovascular: No edema, Regular rate/rhythm Gastrointestinal: Normal bowel sounds, Non-distended, No tenderness Integumentary: No rashes Neurological: Normal speech, Normal tone, Normal affect Urinary: Left nephrostomy tube Laboratory Data - Reviewed Microbiology Data - Reviewed Imagings Data: - Reviewed Medications list: Reviewed Assessment and Plan Problem List Sepsis secondary to complicated urinary tract infection Acute Kidney Injury Hypothyroidism Gout Hyperlipidemia Sepsis secondary to Complicated Urinary Tract Infection - CT abdomen pelvis 08/29: "Left-sided percutaneous nephrostomy tube is in expected location. There is no maternal hydronephrosis. There is 8 mm stone in the proximal left ureter distal to the pigtail. Punctate bilateral nephrolithiasis present as well. Multi stone cholelithiasis." - urinalysis nephrostomy drain and clean catch both + yeast - Blood cultures 08/29: pending - Urine culture 08/29 pending - Currently on Cefepime (started 08/29) Leukocytosis resolved Afebrile Qtc <450 on 08/17/2023 Recommendations - Follow up with final blood and urine culture results. If no growth, consider discontinuation of Cefepime. - urinalysis x2 with + yeast. Start on fluconazole. - maintain adequate hydration - nutritional supplementation - Renally dose medications - continue supportive care - Recommend follow up with urologist as outpatient. Case discussed with Kourtney Pierre
--- NOTE | 2023-08-31 10:17 | P.PN ---
Date of Service: 08/31/23 Subjective: Renal function continues to improve No acute events overnight PCN draining freely ROS: 10 point ROS as noted above, otherwise negative Physical exam GEN: Alert, oriented, NAD HEENT: Normal conjunctiva, sclera anicteric CV: Regular rate and rhythm, no edema Pulm: Nonlabored respirations on room air ABD: Soft, nontender, nondistended, left PCN in place MSK: No joint tenderness Integumentary: No rashes Neuro: Normal speech, normal affect Vitals reviewed Assessment: Acute kidney injury-likely multifactorial Severe sepsis secondary to UTI 8 mm proximal left ureteral stone S/P left percutaneous nephrostomy tube placement-no resulting hydronephrosis Hypertension-currently with hypotension Hypothyroidism Gout Plan: Acute kidney injury-likely multifactorial CT abdomen pelvis performed with no significant hydronephrosis/obstructive ur opathy noted Patient does admit very poor oral intake VINICIUS likely secondary to dehydration, poor oral intake, low blood pressures Sepsis/UTI also likely contributing Improving with IV fluid continue to monitor function closely Nephrology following Also considering postobstructive polyuria Severe sepsis secondary to UTI SIRS criteria present including leukocytosis, tachycardia Source of infection on urinalysis from nephrostomy tube with UTI Given total of 30 cc/kg IV fluid bolus in ED with improvement blood pressure Only 1 systolic blood pressure less than 90 systolic, improved with IV fluids Believe hypotension likely multifactorial with poor oral intake Follow urine culture 8 mm proximal left ureteral stone S/P left percutaneous nephrostomy tube pl acement-no resulting hydronephrosis Nephrostomy tube in place, draining well CT without hydro Hypertension-currently with hypotension Hold blood pressure medications while hypotensive Hypothyroidism Gout Continue home medications DVT PPX: Heparin subcu Code status: Full Discharge Plan: Home Plan to discharge in: Greater than 2 days Time Spent Managing Pts Care (In Minutes): 35 <Ottoniel Shepherd - Last Filed: 08/31/23 10:15> Patient seen and examined on rounds this morning with ISOLATION WASHER Cora. Agree with plan of care as noted above with following additions/exceptions: afebrile, no leukocytosis. feeling better, does not appear toxic although had SIRS criteria, suspect secondary to hypovolemia, less likely infection/sepsis, but given recent procedures patient was covered empirically decrease IVF improving anticipate dc home in ~48hrs <Renaldo Bower - Last Filed: 08/31/23 17:34>
--- NOTE | 2023-08-31 10:52 | P.PN ---
Date of Service: 08/31/23 Vital Signs Temp Pulse Resp BP Pulse Ox 97.9 F 81 18 129/62 92 08/31/23 08:00 08/31/23 08:00 08/31/23 08:00 08/31/23 08:00 08/31/23 08:00 Medications Acetaminophen (Acetaminophen 500 Mg Tab) 500 mg PO Q4HP PRN PRN Reason: Pain scale 2-4 (Mild) Last Admin: 08/30/23 20:43 Dose: 500 mg Fluconazole (Fluconazole 100 Mg Tab) 150 mg PO DAILY [facility]; Protocol Stop: 09/06/23 09:01 Heparin Sodium (Porcine) (Heparin 5000 Unit/Ml 1 Ml Vial) 5,000 unit SQ Q12HR ALEJANDRO Last Admin: 08/31/23 09:23 Dose: 5,000 unit Cefepime HCl 1 gm/ Sodium (Chloride) 100 mls @ 200 mls/hr IV DAILY [facility]; Protocol Last Admin: 08/31/23 09:23 Dose: 100 mls Lactated Ringer's (Lactated Ringers) 1,000 mls @ 50 mls/hr IV .Q20H ALEJANDRO Stop: 08/31/23 12:00 Last Admin: 08/31/23 09:24 Dose: 1,000 mls Microbiology Results 08/29/23 10:55 Catheterized Urine [place] Count - Final >100,000 CFU/ML. 08/29/23 10:55 Catheterized Urine - Preliminary MIXED MARIBEL. 08/29/23 10:56 Blood - Blood Aerobic Blood Culture - Preliminary No growth in 24 hours. 08/29/23 10:56 Blood - Blood Anaerobic Blood Culture - Preliminary No growth in 24 hours. 08/29/23 10:26 Blood - Blood Aerobic Blood Culture - Preliminary No growth in 24 hours. 08/29/23 10:26 Blood - Blood Anaerobic Blood Culture - Preliminary No growth in 24 hours. Assessment/ Plan: Nephrology Progress Note No Dyspnea No Chest Pain No Acute Events Overnight Feeling better Vital Signs, Medications, Blood Work, and Imaging reviewed in the chart NAD. NCAT. MMM. Neck Supple. Normal Respiratory Effort. RRR. Abd ND. No C/C. LE Edema none. No Rash. AAO. Normal Speech. 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
[2023-08-31 12:08] LABS: Blood Morphology Comment NOT SEEN (NOT SEEN); Platelet Estimate ADEQ; White Blood Cell Scan OK (OK)
--- NOTE | 2023-08-31 13:33 | EKG ---
Test Date: 2023-08-29 Test Time: 10:15:05 Small Offset Printer: DAVE MEASUREMENT RESULTS: Intervals: Rate: 76 VT: 220 QRSD: 92 QT: 392 QTc: 441 [place]: P: 65 VT: 220 QRS: 46 T: 55 INTERPRETIVE STATEMENTS: Sinus rhythm with 1st degree AV block Otherwise normal ECG Compared to ECG 08/17/2023 10:41:20 First degree AV block now present Right-axis deviation no longer present Myocardial infarct finding no longer present Electronically Signed On 08-31-23 13:24:16 BILLING COORDINATOR by Aureliano Rodriguez
[2023-08-31] MEDS: FLUCONAZOLE 100 MG TAB PO SCH (14:10)
[2023-08-31] MEDS: ACETAMINOPHEN 500 MG TAB PO PRN (17:58)
[2023-09-01 05:27] LABS: Hematocrit 38.4 % (39.6-49.0); MCV 90.2 fL (80-100); MPV 8.4 fL (7.6-11.3); Platelets 179 thou/uL (152-406); RBC Red Blood Cell Count 4.26 M/uL (4.33-5.43)
[2023-09-01 05:37] LABS: Potassium 4.4 mEq/L (3.5-5.1)
[2023-09-01] MEDS: LEVOTHYROXINE SOD 0.1 MG TAB PO SCH (06:50)
[2023-09-01] MEDS: CEFEPIME 1 GM in NA CHLORIDE 0.9% 100 ML IV SCH (09:36)
--- NOTE | 2023-09-01 09:36 | P.PN ---
Date of Service: 09/01/23 Chief Complaint: VINICIUS, hypotension Subjective: Patient in bed. No acute events overnight. In no apparent distress. Denies any new or worsening complaints. Plan of care discussed with patient. Physical Examination Temp Pulse Resp BP Pulse Ox 97.7 F 81 18 137/66 91 09/01/23 08:00 09/01/23 08:00 09/01/23 08:00 09/01/23 08:00 09/01/23 08:00 General: Alert, In no apparent distress, Oriented x3 HEENT: Atraumatic, Normocephalic. Respiratory: Diminished at bases. Unlabored respirations. Cardiovascular: No edema, Regular rate/rhythm Gastrointestinal: Normal bowel sounds, Non-distended, No tenderness Integumentary: No rashes Neurological: Normal speech, Normal tone, Normal affect Urinary: Left nephrostomy tube Laboratory Data - Reviewed Microbiology Data - Reviewed Imagings Data: - Reviewed Medications list: - Reviewed Assessment and Plan Problem List Sepsis secondary to complicated urinary tract infection Acute Kidney Injury Hypothyroidism Gout Hyperlipidemia Sepsis secondary to Complicated Urinary Tract Infection - CT abdomen pelvis 08/29: "Left-sided percutaneous nephrostomy tube is in expected location. There is no maternal hydronephrosis. There is 8 mm stone in the proximal left ureter distal to the pigtail. Punctate bilateral nephrolithiasis present as well. Multi stone cholelithiasis." - urinalysis nephrostomy drain and clean catch both + yeast - Blood cultures 08/29: no growth to date - Urine culture 08/29: mixed hermilo ; colony count >100,000 CFU/mL - Currently on Cefepime (started 08/29) Leukocytosis resolved Afebrile Qtc <450 on 08/17/2023 Recommendations - urinalysis x2 with + yeast. Continue fluconazole x 7 days - Discontinue cefepime prior to discharge. - nutritional supplementation - Renally dose medications - continue supportive care - Recommend follow up with urologist as outpatient. Case discussed with Kourtney Pierre
[2023-09-01] MEDS: HEPARIN 5000 UNIT/ML 1 ML VIAL SQ SCH ×2 (09:37→20:23)
[2023-09-01] MEDS: FLUCONAZOLE 100 MG TAB PO SCH (09:37)
--- NOTE | 2023-09-01 10:54 | P.PN ---
Date of Service: 09/01/23 Subjective: Renal function continues to improve No acute events overnight PCN draining freely ROS: 10 point ROS as noted above, otherwise negative Physical exam GEN: Alert, oriented, NAD HEENT: Normal conjunctiva, sclera anicteric CV: Regular rate and rhythm, no edema Pulm: Nonlabored respirations on room air ABD: Soft, nontender, nondistended, left PCN in place MSK: No joint tenderness Integumentary: No rashes Neuro: Normal speech, normal affect Vitals reviewed Assessment: Acute kidney injury-likely multifactorial Severe sepsis secondary to UTI 8 mm proximal left ureteral stone S/P left percutaneous nephrostomy tube placement-no resulting hydronephrosis Hypertension-currently with hypotension Hypothyroidism Gout Plan: Acute kidney injury-likely multifactorial CT abdomen pelvis performed with no significant hydronephrosis/obstructive ur opathy noted Patient does admit very poor oral intake VNIICIUS likely secondary to dehydration, poor oral intake, low blood pressures Sepsis/UTI also likely contributing Improving with IV fluid continue to monitor function closely Nephrology following Also considering postobstructive diuresis contributing possible DC tomorrow Severe sepsis secondary to UTI SIRS criteria present including leukocytosis, tachycardia Source of infection on urinalysis from nephrostomy tube with UTI Given total of 30 cc/kg IV fluid bolus in ED with improvement blood pressure Only 1 systolic blood pressure less than 90 systolic, improved with IV fluids Believe hypotension likely multifactorial with poor oral intake Follow urine culture 8 mm proximal left ureteral stone S/P left percutaneous nephrostomy tube placement-no resulting hydronephrosis Nephrostomy tube in place, draining well CT without hydro will need FU with Dr. Hermosillo urology at [place] Hypertension-currently with hypotension Hold blood pressure medications while hypotensive Hypothyroidism Gout Continue home medications DVT PPX: Heparin subcu Code status: Full Discharge Plan: Home Plan to discharge in: Greater than 2 days Time Spent Managing Pts Care (In Minutes): 35
--- NOTE | 2023-09-01 11:44 | P.PN ---
Nephrology note (S) Pt reports feeling better, denies any flank pain, bladder spasms, urinary urgency. Lt nephrostomy draining yellow urine. Has been OOB, has mild chronic shortness of breath, prior smoker, on LFNC (O) Vitals reviewed in the EMR General: Alert, Cooperative, Cachectic HEENT: Atraumatic, Normocephalic, Other (LFNC) Neck: Supple Respiratory: Normal air movement, Other (No rhonchi anteriorly) Cardiovascular: No edema, Regular rate/rhythm Gastrointestinal: Soft and benign, Non-distended, No tenderness, Other (Lt PCN) Musculoskeletal: No contractures, No tenderness Integumentary: No rashes Neurological: Normal speech, Normal tone Conclusions/Impression: A/P) 1. Stage III sub-acute, recurrent renal failure in the setting of pre-renal azotemia, hypotension, suspected urosepsis and concurrent ACEi/thiazide diuretic use, resolving 2. Fortunately, Cr level did downward trend quickly with initial vol resuscitation. IVF stopped 3. Hypotension 2nd to hypovolemia, meds, urosepsis. Resolved. Cont to hold BP meds such as Lisinopril and Amlodopine on discharge 4. Hx of recent Lt hydro 2nd to prox ureteral calculus s/p Lt PCN, calculus of ureter still noted but no current left hydro. Abnormal findings in urine, without specific culture growth, complete course of Abx for suspected urosepsis. Will need OP urology f/u for definitive stone management, ureteral stenting and to allow PCN removal. Ajith Hemphill MD, ESPERANZA
[2023-09-02 00:57] VITALS: O2SAT 92
[2023-09-02] MEDS: ACETAMINOPHEN 500 MG TAB PO PRN (02:11)
[2023-09-02 04:25] LABS: Hematocrit 36.9 % (39.6-49.0); MCV 90.2 fL (80-100); MPV 8.4 fL (7.6-11.3); Platelets 158 thou/uL (152-406); RBC Red Blood Cell Count 4.09 M/uL (4.33-5.43)
[2023-09-02 04:47] LABS: Potassium 4.3 mEq/L (3.5-5.1)
[2023-09-02 05:15] VITALS: TEMP 97.9
[2023-09-02] MEDS: LEVOTHYROXINE SOD 0.1 MG TAB PO SCH (05:47)
[2023-09-02] MEDS: CEFEPIME 1 GM in NA CHLORIDE 0.9% 100 ML IV SCH (08:57)
[2023-09-02] MEDS: FLUCONAZOLE 100 MG TAB PO SCH (08:57)
[2023-09-02] MEDS: HEPARIN 5000 UNIT/ML 1 ML VIAL SQ SCH (08:58)
[2023-09-02] MEDS ORDERED: allopurinoL 300 MG TAB PO SCH (09:00)
[2023-09-02] MEDS ORDERED: ATORVASTATIN 40 MG TAB PO SCH (09:00)
[2023-09-02 09:11] VITALS: BP 140/61
--- NOTE | 2023-09-02 11:15 | P.DS ---
Admission Date: 08/29/23 Discharge Date: 09/02/23 Disposition: ROUTINE DISCHARGE Discharge Condition: GOOD Reason for Admission: VINICIUS, hypotension Consultations: Nephrology- Dr. Samuels Brief History of Present Illness: 88-year-old male with hypertension, hypothyroidism, hyperlipidemia, gout presents to the emergency department chief complaint of low blood pressure. He was recently admitted to our hospital for acute hypoxic respiratory failure 2/2 COVID pneumonia/copd , acute kidney injury and found to have obstructive uropathy. He was transferred to [facility] for further evaluation/percutaneous nephrostomy tube placement given his marked hydronephrosis. He was discharged from [facility] on 08/23/2023 with a creatinine around 1.5. He was discharged to rehab facility for approximately 3 days and subsequently went home 3 days prior to presentation to the emergency department. He was evaluated here in the emergency department and his labs were significant for a white blood cell count of 14.1 creatinine 5.03 BUN 155 GFR 10 bicarb 20 sodium 132 lactic acid 1.4 UA was obtained from nephrostomy tube which was concerning for presence of UTI Additional urine was obtained with straight cath from urethra which did not seem to demonstrate infection Upon presentation to the emergency department patient was hypotensive with a blood pressure of 64/43, he was given IV fluids in the emergency department and his blood pressure has improved, he was also given empiric antibioticscefepime. There is also likely component of dehydration/poor oral intake contributing to his hypovolemia, hypotension. Patient be admitted to hospital for further evaluation Hospital Course: Assessment: Acute kidney injury-likely multifactorial Severe sepsis secondary to UTI 8 mm proximal left ureteral stone S/P left percutaneous nephrostomy tube placement-no resulting hydronephrosis Hypertension-currently with hypotension Hypothyroidism Gout Patient was admitted to the hospital for acute kidney injury after recent hospitalization for obstructive uropathy/VINICIUS. He has a left-sided percutaneous nephrostomy tube in place which has been draining well. It is believed that his VINICIUS and initial hypotension are result of postobstructive diuresis after nephrostomy tube placement along with poor oral intake. Patient was given IV fluids, his creatinine significantly improved. He has been off IV fluids for around 36 hours now and his creatinine remained stable, he has had good oral intake. He still does have a proximal 8 mm ureteral stone on the left side, he will need to follow-up closely with nephrology for further management. Urine was concerning for urinary tract infection, urine culture returned with yeast, patient will be given prescription for fluconazole 150 mg by mouth daily for additional 5 days. He was evaluated by ID during his hospitalization. Initial blood pressure was low upon arrival to the hospital, recommend discontinuation of lisinopril, hydrochlorothiazide for now and continuing only with amlodipine. Patient with history of COPD oxygen saturations was noted to be low in the high 80s to low 90s, he did qualify for home oxygen which has been arranged. Continue home oxygen. Will also send prescription for as needed albuterol inhaler Recommend outpatient evaluation by pulmonology. Please follow-up with urologyDrJodi Hermosillo in 1 to 2 weeks [facility] Please follow-up with nephrologyDr. Samuels/Dr. Ramirez in 1 to 2 weeks Vital Signs/Physical Exam: Temp Pulse Resp BP Pulse Ox 97.9 F 65 16 140/61 92 09/02/23 08:00 09/02/23 08:00 09/02/23 08:00 09/02/23 08:00 09/02/23 08:00 General: Alert, In no apparent distress, Oriented x3 HEENT: Atraumatic, PERRLA Neck: Supple, JVD not distended Respiratory: Clear to auscultation bilaterally, Normal air movement Cardiovascular: Regular rate/rhythm, Normal S1 S2 Gastrointestinal: Normal bowel sounds, No tenderness Musculoskeletal: No tenderness Integumentary: No rashes Neurological: Normal speech, Normal tone, Normal affect External genitalia: Other (left PCN in place draining freely) Laboratory Data at Discharge: WBC 7.10 thou/uL (4.3-10.9) 09/02/23 03:54 Hgb 12.6 g/dL (13.6-17.9) L 09/02/23 03:54 Hct 36.9 % (39.6-49.0) L 09/02/23 03:54 Plt Count 158 thou/uL (152-406) 09/02/23 03:54 PT 11.9 SECONDS (9.5-12.5) 08/29/23 10:26 INR 1.08 08/29/23 10:26 APTT 25.9 SECONDS (24.3-36.9) 08/29/23 10:26 Sodium 138 mEq/L (136-145) 09/02/23 03:03 Potassium 4.3 mEq/L (3.5-5.1) 09/02/23 03:03 BUN 23 mg/dL (7-18) H 09/02/23 03:03 Creatinine 1.39 mg/dL (0.70-1.30) H 09/02/23 03:03 Glucose 110 mg/dL (74-106) H 09/02/23 03:03 Magnesium 1.8 mg/dL (1.6-2.4) 08/31/23 06:05 Total Bilirubin 0.6 mg/dL (0.2-1.0) 08/31/23 06:05 AST 16 U/L (15-37) 08/31/23 06:05 ALT 23 U/L (16-61) 08/31/23 06:05 Alkaline Phosphatase 88 U/L (45-117) 08/31/23 06:05 Home Medications: Amlodipine Besylate [Norvasc] 10 mg PO DAILY WITH BREAKFAST 08/19/16 Levothyroxine Sodium 100 mcg PO DAILY 08/19/16 allopurinoL [Zyloprim*] 300 mg PO DAILY 08/19/16 Atorvastatin Calcium [Lipitor] 40 mg PO DAILY 08/17/23 Albuterol Inhaler [Ventolin Inhaler*] 2 puff IH Q6H PRN #1 inh 09/02/23 Fluconazole [Diflucan] 150 mg PO DAILY 5 Days #8 tab 09/02/23 New Medications: Fluconazole [Diflucan] 150 mg PO DAILY 5 Days #8 tab Albuterol Inhaler [Ventolin Inhaler*] 2 puff IH Q6H PRN #1 inh PRN Reason: Shortness Of Breath Physician Discharge Instructions: PROBLEM: Acute Kidney Injury. Hypotension GOAL: Clear understanding of disease process INSTRUCTIONS: Diet: Regular Activity: As tolerated Date Given: Patient was admitted to the hospital for acute kidney injury after recent hospitalization for obstructive uropathy/VINICIUS. He has a left-sided percutaneous nephrostomy tube in place which has been draining well. It is believed that his VINICIUS and initial hypotension are result of postobstructive diuresis after nephrostomy tube placement along with poor oral intake. Patient was given IV fluids, his creatinine significantly improved. He has been off IV fluids for around 36 hours now and his creatinine remained stable, he has had good oral intake. He still does have a proximal 8 mm ureteral stone on the left side, he will need to follow-up closely with nephrology for further management. Urine was concerning for urinary tract infection, urine culture returned with yeast, patient will be given prescription for fluconazole 150 mg by mouth daily for additional 5 days. He was evaluated by ID during his hospitalization. Initial blood pressure was low upon arrival to the hospital, recommend disco ntinuation of lisinopril, hydrochlorothiazide for now and continuing only with amlodipine. Patient with history of COPD oxygen saturations was noted to be low in the high 80s to low 90s, he did qualify for home oxygen which has been arranged. Continue home oxygen. Will also send prescription for as needed albuterol inhaler Recommend outpatient evaluation by pulmonology. Please follow-up with urologyDlinnea Hermosillo in 1 to 2 weeks Please follow[facility] Please follow-up with nephrologyDr. Samuels/Dr. Ramirez in 1 to 2 weeks Diet: Regular Activity: Ad harmeet Followup: NONE,NONE [Primary Care Provider] - Time spent managing pt's care (in minutes): 35
== END 2023-09-02 11:47 | disposition home health service (06) | DRG 698 ==
LOC: ER 09:58 → ERHOLD 13:27 → 2ND 15:30
PROVIDERS: ADMIT Hospitalist; ATTEND Hospitalist
DX: T83.512A Infection and inflammatory reaction due to nephrostomy catheter, initial encounter (principal); A41.9 Sepsis, unspecified organism; R57.1 Hypovolemic shock; R65.20 Severe sepsis without septic shock; N17.9 Acute kidney failure, unspecified; E87.1 Hypo-osmolality and hyponatremia; N30.00 Acute cystitis without hematuria; R64 Cachexia; J44.9 Chronic obstructive pulmonary disease, unspecified; I12.9 Hypertensive chronic kidney disease with stage 1 through stage 4 chronic kidney disease, or unspecified chronic kidney disease; N18.2 Chronic kidney disease, stage 2 (mild); E11.22 Type 2 diabetes mellitus with diabetic chronic kidney disease; E03.9 Hypothyroidism, unspecified; E78.5 Hyperlipidemia, unspecified; E86.0 Dehydration; M10.9 Gout, unspecified; E88.09 Other disorders of plasma-protein metabolism, not elsewhere classified; Z66 Do not resuscitate; Z60.2 Problems related to living alone; Z88.2 Allergy status to sulfonamides; Z88.0 Allergy status to penicillin; Z68.25 Body mass index [BMI] 25.0-25.9, adult; Z86.16 Personal history of COVID-19; Z79.890 Hormone replacement therapy; Z79.899 Other long term (current) drug therapy; Z87.891 Personal history of nicotine dependence; Y84.8 Other medical procedures as the cause of abnormal reaction of the patient, or of later complication, without mention of misadventure at the time of the procedure
CPT/HCPCS: 36415; 71045; 74176; 80048; 80053; 81001; 82947; 83605; 83735; 84145; 84484; 85025; 85027; 85610; 85730; 87040; 87086; 87088; 93005; 97116; 97161; J0692; J1644; J7030; J7040; J7120

== ENCOUNTER 2023-10-24 11:30 | Day surgery (SDC) | payer OTHER ==
[2023-10-19 11:40] LABS: Absolute Basophils 0.1 K/uL (0-0.5); Absolute Eosinophils 0.1 K/uL (0-0.5); Absolute Lymphocytes (CBC) 1.4 K/uL (0.7-4.9); Absolute Monocytes 0.9 K/uL (0.1-1.3); Absolute Neutrophil 3.9 K/uL (1.8-8.0); Basophils % 1.5 % (0-1.3); Eosinophils % 1.7 % (0-4.4); Hematocrit 39.3 % (39.6-49.0); Hemoglobin 13.3 g/dL (13.6-17.9); Lymphocytes % 22.2 % (15.3-44.8); MCH 30.8 pg (27.0-35.0); MCHC 33.9 g/dL (32.0-36.0); MCV 90.8 fL (80-100); MPV 7.2 fL (7.6-11.3); Monocytes % 13.7 % (3.3-12.3); Neutrophils % 60.9 % (41.7-73.7); Nucleated Red Blood Cells % 0.2 % (0-0); Platelets 217 thou/uL (152-406); RBC Red Blood Cell Count 4.33 M/uL (4.33-5.43)
[2023-10-19 11:43] LABS: PTT, Activated Partial Thromb 30.2 SECONDS (24.3-36.9)
[2023-10-19 11:44] LABS: PT Prothrombin Time 11.4 SECONDS (9.5-12.5); Protime INR 1.04
[2023-10-19 11:54] LABS: Anion Gap 7.4 mEq/L (5.0-15.0); Potassium 3.4 mEq/L (3.5-5.1)
[2023-10-24] MEDS: NA CHLORIDE 0.9% 500 ML ONE (12:31)
[2023-10-24] MEDS ORDERED: MIDAZOLAM HCL 2 MG/2 ML INJ ONE (14:05)
[2023-10-24] MEDS ORDERED: ATROPINE SULF 1 MG/10 ML SYR IV ONE (14:05)
[2023-10-24] MEDS ORDERED: HEPA 1000U/500MLS 1,000 UNIT/500 ML BAG IV ONE (14:05)
[2023-10-24] MEDS ORDERED: FENTANYL CITR 100 MCG/2 ML ONE (14:05)
[2023-10-24] MEDS ORDERED: ASPIRIN 325 MG TAB ONE (14:06)
[2023-10-24] MEDS ORDERED: CLOPIDOGREL 75 MG TABLET ONE (14:06)
[2023-10-24] MEDS ORDERED: HEPARIN 10,000 UNIT/10 ML VIAL IV ONE (14:06)
[2023-10-24] MEDS ORDERED: TICAGRELOR 90 MG TABLET PO ONE (14:06)
[2023-10-24] MEDS ORDERED: LIDOCAINE 1% 20 ML MDV ONE (14:19)
[2023-10-24 22:26] VITALS: BP 149/59; TEMP 97.3; O2SAT 94
--- NOTE | 2023-10-25 01:42 | OP ---
Date of Procedure: 10/24/2023 Surgeon: CATALINO CEDENO Procedure Performed: 1.Selective bilateral carotid angiogram. 2.Peripheral angiogram with runoff. Indication: 1.Carotid artery stenosis bilaterally. 2.Severe peripheral vascular disease. Access: Right common femoral artery, 4-Danish, closed with manual pressure. Complications: None. Bleeding: Less than 50 mL. Anesthesia: Total sedation time was 45 minutes. Used fentanyl, Versed. Description Of Procedure: After risks, benefits, and alternatives were explained, patient agreed to procedure and signed informed consent. The [facility], prepped and draped in usual sterile fashion. Then, I accessed right femoral artery using dinorah ropuncture kit, ultrasound guidance, and fluoroscopy. Placed 4-Danish [place] sheath and took a 4-F Precogch 3DRC catheter into the aortic root, engaged the right common carotid and took standard views an d then the left common carotid, took standard views. Then exchanged for a 4-Danish straight pigtail, placed in distal aorta, performed distal aortogram with runoff and then removed the catheter and the sheath. Manual pressure was used for closure with good hemostasis. Findings: 1.Carotid angiogram: a.Right common carotid mid to distal 80% focal stenosis. The internal carotid appears to be with mi ld luminal irregularities. b.The left common carotid in the mid segment there is focal 80% stenosis. The rest of the carotids are normal. 2.Peripheral angiogram: a.Distal aorta is patent. b.Right lower extremity: Right common iliac with diffuse 60% stenosis. The right external iliac wi th diffuse 80%, extends into the proximal part of the right common femoral artery. Profunda is paten t and the right SFA has 60% proximally and luminal irregularities and then below the knee triple-vess el runoff with then mild diffuse between 30% and 50% stenosis. c.Left lower extremities: The common iliac has 70% to 80% and external iliac has 70% stenosis. Com mon femoral artery appears to be normal and the left profunda is patent. The left SFA is with lumina l irregularities regularities and imagn-[id number] mild diffuse disease ranging between 30% and 50%. Conclusion: 1.Severe bilateral common carotid artery stenosis. 2.Severe peripheral vascular disease as outlined above. Plan: We will plan for carotid endarterectomy bilaterally and then plan for balloon angioplasty of l ower extremities, first the right and then the left, will be done at [facility]. /SARAHI Voice ID: [id number] Report ID: [id number]
== END 2023-10-24 18:49 | disposition home or self-care (01) ==
LOC: CCL 11:30
PROVIDERS: ATTEND Internal Medicine
DX: I70.203 Unspecified atherosclerosis of native arteries of extremities, bilateral legs (principal); I65.23 Occlusion and stenosis of bilateral carotid arteries; I71.40 Abdominal aortic aneurysm, without rupture, unspecified; I10 Essential (primary) hypertension; E78.5 Hyperlipidemia, unspecified; E03.9 Hypothyroidism, unspecified; M10.9 Gout, unspecified; Z87.891 Personal history of nicotine dependence; Z88.0 Allergy status to penicillin; Z88.2 Allergy status to sulfonamides
CPT/HCPCS: 85025; 80048; 36415; 83721; 85610; 82947; 85730; 75630; 36222; 76937; C1893; J2001; J2250; J3010; J7040; 99152; 99153; J0461

== ENCOUNTER 2023-11-14 10:28 | Day surgery (SDC) | payer OTHER ==
[2023-11-14] MEDS: ERTAPENEM NA 1 GM in NA CHLORIDE 0.9% 100 ML IVPB ONE (10:47)
[2023-11-14] MEDS ORDERED: FENTANYL CITR 100 MCG/2 ML ONE (10:54)
[2023-11-14] MEDS ORDERED: ONDANSETRON 4 MG/2 ML VIAL ONE (10:54)
[2023-11-14] MEDS ORDERED: propofoL 200 MG/20 ML VIAL IV ONE (10:54)
[2023-11-14] MEDS ORDERED: LIDOCAINE 1% MPF 5 ML VIAL ONE (10:54)
[2023-11-14] MEDS: Ringers Lactate 1,000 ML IV ONE (10:58)
[2023-11-14] MEDS ORDERED: ROCURONIUM 50 MG/5 ML VIAL IV ONE (12:45)
[2023-11-14] MEDS ORDERED: EPHEDRINE SULF 50 MG/ML VIAL ONE (12:46)
[2023-11-14] MEDS ORDERED: dexAMETHasone 10 MG/ML VIAL ONE (12:47)
[2023-11-14] MEDS ORDERED: SUGAMMADEX SODIUM 200 MG/2 ML VIAL IV ONE (13:04)
[2023-11-14] MEDS ORDERED: Phenylephrine HCl 10 MG/ML 1 ML VIAL ONE (13:19)
[2023-11-14] MEDS ORDERED: NS 0.9% VIAL 10 ML ONE (13:19)
[2023-11-14] MEDS ORDERED: CODEINE 30MG/APAP 300MG TAB PO PRN (14:23)
[2023-11-14] MEDS: PHENAZOPYRIDINE 100MG TAB PO ONE (14:25)
--- NOTE | 2023-11-14 14:26 | RAD REPORT ---
EXAM DESCRIPTION: RAD - Urethrocystogrphy Retrograde - 11/14/2023 1:59 pm CLINICAL HISTORY: LEFT STENT- CYSTO COMPARISON: None available. FINDINGS: Twenty-eight Images were sent to PACS, documenting fluoroscopy used during cystography and left ureteral is tenting procedure. No radiologist was available for the procedure, nor will any cuca ge interpretation he provided. Please refer to the procedural report for additional details. Fluoroscopy time: 1:33 Minutes. IMPRESSION: Documentation of fluoroscopy utilization as above.
[2023-11-14] MEDS: ALBUTEROL 2.5 MG/3 ML NEB SOL ONE (14:30)
[2023-11-14] MEDS ORDERED: FUROSEMIDE 20 MG/ 2ML VIAL IV ONE (15:05)
[2023-11-14] MEDS ORDERED: NA CHLORIDE 0.9% 500 ML ONE (15:07)
[2023-11-14] MEDS: NA CHLORIDE 0.9% 500 ML IV ONE (15:10)
[2023-11-14] MEDS: FUROSEMIDE 40 MG/4 ML VIAL ONE (16:00)
[2023-11-14] MEDS ORDERED: PHENAZOPYRIDINE 100MG TAB PO ONE (16:16)
[2023-11-14 17:00] VITALS: BP 132/54
[2023-11-14] MEDS ORDERED: LIDOCAINE JELLY 2% 5 ML SYRINGE TOP ONE (17:14)
[2023-11-14 18:10] VITALS: TEMP 97.5; O2SAT 91
--- NOTE | 2023-11-14 18:49 | OP ---
Surgeon: ORAL SAMUELS Preoperative Diagnoses: 1.Impacted proximal left ureterolithiasis. 2.Status post placement of left percutaneous nephrostomy tube. Postoperative Diagnoses: 1.Impacted proximal left ureterolithiasis. 2.Status post placement of left percutaneous nephrostomy tube. Principal Procedures: 1.Cystoscopy with left retrograde pyelography. 2.Left antegrade pyelography. 3.Left ureteroscopy with laser lithotripsy. 4.Left ureteral dilatation. 5.Left 7-Haitian x 26 cm ureteral stent placement. Indication For Procedure: Mr. Javier is an 88-year-old gentleman who presented via the emergency dep artment with pain and found to have an obstructing proximal ureteral calculus that was 9 mm in diamet er. He underwent attempted cystoscopy with left ureteral stent placement that was thwarted due to th e presence of the stone being densely impacted and not even allowing Omnipaque to traverse beyond the stone. As a result, he ultimately required a percutaneous nephrostomy tube placement, and they also were unable to place a nephroureteral stent. As a result, he presents today for definitive manageme nt of his impacted ureteral calculus. Procedure Note In Detail: The patient was consented in the preoperative holding area before being tr ansferred to the operative suite where general anesthesia was induced. He was treated with ertapenem 1 g 24 hours prior to the procedure and another 1 g was given 30 minutes to 1 hour prior to the proc edure today. He was placed in the lithotomy position, padded and secured to the table appropriately, and his genitalia were prepped with Hibiclens before being draped in standard fashion. A slight deg ree of padding was placed beneath his left hip to elevate the flank and expose the insertion site of the nephrostomy tube. I prepped the nephrostomy tube and site with ChloraPrep extensively, cleaning it of any and all debris. Drapery sterilely was placed around it. The case was begun by cutting the suture that held the nephrostomy tube in place and injecting a 70:30 mixture of Omnipaque and saline to perform an antegrade nephrostogram. Left antegrade nephrostogram: Using the Omnipaque mixture injected via the nephrostomy tube blakei ng, I did delineate the renal pelvis and calyces as well as about a centimeter of proximal ureter bef ore the contrast did terminate and would not enter any more distal segment of the ureter. The stone was radiolucent in that location; so I passed a Bentson guidewire via the nephrostomy tube coiling it within the dilated collecting system and then passed a Kumpe catheter over the wire fluoroscopically with the tip angling into the renal pelvis at the UPJ. Attempts to navigate a Sensor wire via the K umpe catheter directed at the obstructed position in the UPJ revealed that the wire would simply not pass beyond the point of impaction. As a result, I left the Kumpe catheter in place and coiled a Efren tson wire within the renal pelvis, securing it in place to preserve that access. I then turned my attention to the patient's bladder. I inserted a 22-Haitian cystoscope via his ureth ra into his bladder with ease and decompressed it of fluid and some cloudy urine. I then intubated t he left ureteral orifice using a Sensor wire and a 5-Haitian ureteral access catheter. Left retrograde pyelography: Using a full-strength Omnipaque contrast, I injected it via the 5-Frenc h ureteral access catheter and observed it navigate up the distal into the mid and proximal ureter wh ere it reached a point of obstruction at the level of the UPJ. Contrast did emanate or appear to annel augusta beyond this point of obstruction into the collecting system. So, I then attempted to use the Se nsor wire passed via the 5-Haitian ureteral access catheter and up the ureter to navigate it into the collecting system. Unfortunately, the Sensor wire would not navigate beyond the point of obstruction in the proximal ureter. I even attempted a 0.035 glidewire, but this also would not pass beyond the point of obstruction in the proximal ureter. As a result, I then turned my attention back to the adder where semirigid ureteroscopy was going to be required. I first cannulated the ureteral orifice using a Bentson guidewire and dilated the ureteral orifice us ing an 8-Haitian x 10-Haitian dilator. Once adequately dilated, I was able to perform direct vision se mirigid ureteroscopy navigating the camera and scope via his urethra into his bladder. Upon entry in the bladder, I navigated into the distal left ureter and surveyed it up into the mid and proximal ur eter before encountering a point of obstruction where the prior Sensor wire had coiled beneath the st one. I thus employed a 365 nm laser fiber at a power setting of 0.8 joules and 15 hertz to start. T he stone was incredibly hard and dense and did not seem to fragment, whatsoever, at 0.8 joules. Of paramjit santiaog, I had tried at 0.4 joules and 25 hertz, prior to that. As a result, I increased the rate to 25 and ultimately the power was increased to 1.0 joules in order to begin adequately fragment the calcul us and release it from its impacted position. Once this was done, I then employed a 1.9-Haitian 0 tip Nitinol basket to grab several of the stone fragments and delivered from his ureter and I left the f ragments within the patient's bladder for subsequent later retrieval. I then surveyed the left urete r up beyond the point of obstruction before I could go no higher into his collecting system. I then sought to prepare for flexible ureteroscopy and utilized a dual-lumen catheter ostensibly to place a second guidewire after again performing a retrograde pyelogram study to confirm the intact nature of the collecting system and ureter. With contrast emanating from the distal into the mid and proximal ureter and into his kidney, now with ease, I then passed a dual-lumen catheter over the safety wire, but it reached a point of obstruction in the proximal ureter and would not pass beyond it. I thus ut ilized an 8/10 dilator to dilate this stricture disease in the proximal ureter before ultimately back loading the safety wire via the cystoscope and placing a 7-Haitian x 26 cm double-J ureteral stent wit h mild resistance noted. At this point, with a coil observed fluoroscopically within his renal pelvi s and one cystoscopically formed in his bladder, I then removed the other wire placed antegrade along with the Kumpe catheter, and we applied gauze and paper tape to hold the dressing in place. The pat ient was taken out of the lithotomy position, awakened from general anesthesia, transferred to a [facility], and then transferred to the recovery room in good condition. Complications: None. Discharge Disposition: I am concerned about the significant potential for rapid recurrence of strict ure disease given the impacted nature of his left proximal ureteral calculus. To that end, we will d iscuss on followup whether he wishes an attempt at left ureteral stent extraction, recognizing the st ricture disease may simply recur and obstruct the drainage of the kidney, or he may elect to simply l gilmer with chronic left ureteral stent and exchanges done about every 6 months. We will discuss this in de tail on followup. JYOTI/SARAHI Voice ID: [id number] Report ID: [id number]
== END 2023-11-14 17:45 | disposition home or self-care (01) ==
LOC: OR 10:28
PROVIDERS: ATTEND Urology
PROC: 0TF78ZZ Fragmentation in Left Ureter, Via Natural or Artificial Opening Endoscopic (ICD-10-PCS; principal; 2023-11-14 09:30)
DX: N20.1 Calculus of ureter (principal); I10 Essential (primary) hypertension; E03.9 Hypothyroidism, unspecified; E05.00 Thyrotoxicosis with diffuse goiter without thyrotoxic crisis or storm; E78.5 Hyperlipidemia, unspecified; M10.9 Gout, unspecified
CPT/HCPCS: 87088; 87086; 87077; 87186; 74450; 51610; 52356; A4216; J2704; J2001; J2371; J1940; J7613; J3010; J1335; J1100; J2405; J7120; J7040